=== PATIENT | female | born 1945 | race Caucasian/White ===

== ENCOUNTER 2019-12-26 14:20 | Emergency (ER) | payer MEDICARE, SELFPAY ==
[2019-12-26] VITALS (13 sets, daily range): BP systolic 121–156; BP diastolic 81–92; PULSE 93–104; RESP 14–29; TEMP 36.4; O2SAT 91–98
--- NOTE | ~2019-12-26 | XR_ITS ---
EXAMINATION: XR chest 2V DATE: 12/26/2019 15:35 INDICATION: Weakness. Hypotension. TECHNIQUE: frontal and lateral views of the chest were obtained. COMPARISON: CT dated 10/19/2017 FINDINGS: Compressive atelectasis in the bilateral lower lobes along side a large gas-filled hiatal hernia. Sma ll calcified pulmonary nodule in the right upper lung zone along with calcified right paratracheal ly mph nodes consistent with old granulomatous disease. No other airspace opacities, pulmonary edema, pl eural effusion or pneumothorax. Heart size is normal. Surgical clips at the right side of the neck li catherine related to prior right thyroidectomy. Chronic T12 burst fracture. A few old anterior left rib fr actures. IMPRESSION: 1. No acute cardiopulmonary disease. 2. Large hiatal hernia. Reviewed, dictated and finalized at location A.
--- NOTE | 2019-12-26 14:29 | ECG_ITS ---
Measurements Intervals [place] Rate: 99 P: 89 AK: 201 QRS: -27 QRSD: 144 T: 144 QT: 407 QTc: 523 Interpretive Statements SINUS RHYTHM LEFT BUNDLE BRANCH BLOCK BASELINE ARTIFACT- I, II, AVR, AVL, AVF ABNORMAL ECG Electronically Signed On 12-26-2019 15:08:42 CDT by Kirk Vang D.O.
[2019-12-26 14:38] LABS: Basophils Absolute Auto 0.1 K/mm3 (0.0-0.1); Basophils Percent Auto 1.1 % (0.2-1.2); Eosinophils Absolute Auto 0.1 K/mm3 (0-0.3); Eosinophils Percent Auto 1.3 % (0-4.4); Immature Granulocyte Absolute 0.01 K/mm3 (0.00-0.031); Immature Granulocyte Percent A 0.2 % (0-0.5); Lymphocytes Absolute Auto 0.62 K/mm3 (0.9-3.2); Lymphocytes Percent Auto 11.8 % (18.3-44.2); Mean Corpuscular Hemoglobin 28.9 pg (26-34); Mean Corpuscular Volume 93.3 fl (80-100); Mean Platelet Volume 11.5 fl (7.4-10.4); Monocytes Absolute Auto 0.6 K/mm3 (0.1-0.6); Monocytes Percent Auto 11.4 % (2.6-8.5); Neutrophils Absolute Auto 3.9 K/mm3 (1.3-6.7); Neutrophils Percent Auto 74.2 % (45.5-73.1); Platelet Count Result 239 k/mm3 (150-375); Red Cell Distribution Width 14.3 % (11.5-14.5); White Blood Count 5.3 K/mm3 (4.5-10.0)
[2019-12-26 14:53] LABS: Alanine Aminotransferase 19 U/L (4-35); Albumin Level 4.3 g/dL (3.5-5.1); Alkaline Phosphatase 107 U/L (38-126); Aspartate Amino Transferase 33 U/L (14-36); Bilirubin,Total 1.8 mg/dL (0.2-1.3); Blood Urea Nitrogen 39 mg/dL (7-17); Calcium 9.5 mg/dL (8.4-10.2); Carbon Dioxide 32 mmol/L (22-30); Chloride 100 mmol/L (98-107); Estimated CRCL calculation 23 ml/min; Estimated Glomerular Filt Rate 34; Glucose 123 mg/dL (65-105); Potassium 4.1 mmol/L (3.4-5.0); Sodium 141 mmol/L (137-145)
--- NOTE | 2019-12-26 16:31 | ED.GENADULT ---
HPI - General Adult General Chief complaint: Recheck/Abnormal Lab/Rx Stated complaint: low bp Time Seen by Provider: 12/26/19 16:00 Source: patient and family History of Present Illness HPI narrative: Patient is 74 years old white female, have a home visiting nurse this morning and referred her to the emergency room because her blood pressure was low at that time. Patient denying any symptoms. On arrival to the emergency room blood pressure was 121/81. When I went see the patient in the room her blood pressure was 166/83. Patient still asymptomatic. Denying any dizziness, lightheadedness, chest pain, shortness of breath, nausea, vomiting, abdominal pain. Related Data Home Medications Medication Instructions Recorded Confirmed aspirin 81 mg tablet,delayed 81 mg PO DAILY 06/15/19 12/14/19 release calcitriol 0.25 mcg capsule 0.25 mcg PO 3XW 06/15/19 12/14/19 calcium carbonate 500 mg (1,250 1 tablet PO DAILY 06/15/19 12/14/19 mg)-vitamin D3 125 unit tablet fludrocortisone 0.1 mg tablet 0.1 mg PO DAILY 06/15/19 12/14/19 midodrine 10 mg tablet 10 mg PO TID 06/15/19 12/14/19 pilocarpine HCl 5 mg tablet 5 mg PO TID 06/15/19 12/14/19 potassium chloride 10 mEq 10 meq PO DAILY 06/15/19 12/14/19 capsule,extended release simvastatin 20 mg tablet 20 mg PO DAILY 06/15/19 12/14/19 sodium chloride 1 gram tablet 1,000 mg PO DAILY 06/15/19 12/14/19 Allergies Allergy/AdvReac Type Severity Reaction Status Date / Time No Known Allergies Allergy Unknown Verified 12/14/19 10:29 Review of Systems Review of Systems: Narrative: CONSTITUTIONAL: Denies fever, chills, or sweats. EYES: Denies visual changes, redness, or discharge. ENT: Denies rhinorrhea, congestion, sore throat, or otalgia. CARDIOVASCULAR: Denies chest pain, palpitations, or edema. RESPIRATORY: Denies cough or dyspnea. GASTROINTESTINAL: Denies abdominal pain, nausea, vomiting, or diarrhea. GENITOURINARY: Denies dysuria or hematuria. SKIN: Denies rash or itching. MUSCULOSKELETAL: Denies back pain, joint pain, or myalgia. NEUROLOGIC: Denies headache, numbness, or weakness. PSYCHIATRIC: Denies anxiety or depression. [facility] Past Medical History Medical History Adult hypothyroidism Aortic atherosclerosis HH (hiatus hernia) Hypersalivation Loss of taste Orthostatic hypotension Slow transit constipation Stable burst fracture of t11-T12 vertebra, sequela Throat cancer Surgical History Surgical History S/P thyroidectomy Family History Family History Father Family history of lung cancer Sibling Patient's sister is in good health Social History Social History Social History: Single Smoking packs per day: 1.5 Smoking cigarettes per day: 30.0 Years smoked: 20 Smoking pack-years: 30.00 Smoking status: Former smoker Tobacco type: cigarettes Second hand tobacco smoke exposure: No Smoking end date: 07/12/96 Alcohol intake: never Substance use: never Substance use type: does not use Additional living arrangements comments: grandson lives w/pt Gender identity (if verbalized by the patient): Female Exam Narrative: Exam Narrative: General appearance: Well-developed, well-nourished Skin: Normal color Head: Normocephalic, nontraumatic Eyes: Clear conjunctiva ENT: Oropharynx normal, ears normal, nose normal Neck: Supple, nontender Chest and respiratory: Airway patent, no respiratory distress, no accessory muscle use Heart: Regular rate/rhythm Abdomen: Soft, nontender, no organomegaly, quiet bowel sounds Vascular: Normal peripheral pulses, normal capillary refill. Musculoskeletal: Normal range of motion, nontender back Neurologic: Alert and oriented ?3, [employer] is normal as tested, no gross motor deficit
== END 2019-12-26 16:58 | disposition home or self-care (01) ==
PROVIDERS: General Practice; Emergency Provider Emergency Medicine; PCP Family Medicine
DX: E86.0 Dehydration (principal); K44.9 Diaphragmatic hernia without obstruction or gangrene; Z87.891 Personal history of nicotine dependence; E89.0 Postprocedural hypothyroidism
CPT/HCPCS: 36415; 71046; 80053; 85025; 93005; 99283

== ENCOUNTER 2020-08-13 11:36 | Outpatient (CLI) | payer MEDICARE, SELFPAY ==
[2020-08-13 12:49] LABS: Thyroid Stimulating Hormone 0.481 uIU/mL (0.465-4.680); Total Triiodothyronine (T3) 1.07 NG/ML (0.97-1.69)
[2020-08-13 13:55] LABS: Free T4 Free Thyroxine 0.99 ng/mL (0.78-2.19)
== END 2020-08-13 11:37 | disposition home or self-care (01) ==
PROVIDERS: PCP Family Medicine; Visit Provider Physician Assistant
DX: E03.9 Hypothyroidism, unspecified (principal)
CPT/HCPCS: 36415; 84439; 84443; 84480